=== PATIENT | female | born 1975 | race Caucasian/White ===

== ENCOUNTER 2016-10-26 11:34 | Emergency (ER) | payer SELFPAY ==
[~2016-10-26] VITALS: Ht 152.4 cm; Wt 77.0 kg
[~2016-10-26 11:34] MED LIST: AMOXICILLIN500 MG OR; AMOXICILLIN500 MG PO; AUGMENTIN875 MG OR; BACTRIM DS1 TAB OR; BLEPH-1010 % OD; LORTAB 10 OR; LORTAB 5 OR; LORTAB5 OR; MELOXICAM7.5 MG PO; MULTIVITAMI1 OR; NAPROSYN500 MG PO; NO HOME MEDS; PENICILLN VK500 M1 PO; PENICILLN VK500 MG OR; PERCOCET 5/325M1 TAB OR; PERCOCET 5/325M1 TAB PO; ROBAXIN-750750 MG OR; TORADOL OR; ULTRAM50 M1 PO; ULTRAM50 MG OR; ULTRAM50 MG PO
[2016-10-26] MEDS ORDERED: AUGMENTIN875TAB PO (11:47)
[2016-10-26] MEDS ORDERED: TRAMADOL HYDROC50 MG PO (11:47)
[2016-10-26 11:54] VITALS: BP 138/90
== END 2016-10-26 11:57 | disposition home or self-care (01) | DRG 159 ==
LOC: ED 11:34
DX: K08.89 Other specified disorders of teeth and supporting structures (principal)

== ENCOUNTER 2017-04-11 13:25 | Emergency (ER) | payer SELFPAY ==
[~2017-04-11] VITALS: Ht 152.4 cm; Wt 75.0 kg
[~2017-04-11 13:25] MED LIST changes: +AUGMENTIN875TAB PO; +TRAMADOL HYDROC50 MG PO
[2017-04-11] MEDS ORDERED: LORTAB 1010 MG PO (14:06)
[2017-04-11] MEDS ORDERED: AMOXICILLIN500 MG PO (14:06)
[2017-04-11 14:10] VITALS: BP 131/86
[2017-04-11] MEDS ORDERED: ULTRAM50 M1 PO (14:16)
== END 2017-04-11 14:10 | disposition home or self-care (01) | DRG 159 ==
LOC: ED 13:25
DX: K04.7 Periapical abscess without sinus (principal); S02.5XXA Fracture of tooth (traumatic), initial encounter for closed fracture

== ENCOUNTER 2017-08-15 18:27 | Emergency (ER) | payer SELFPAY ==
[~2017-08-15] VITALS: Ht 152.4 cm; Wt 77.3 kg
[~2017-08-15 18:27] MED LIST changes: +LORTAB 1010 MG PO
[2017-08-15] MEDS ORDERED: NAPROSYN500 MG PO ×2 (18:57→19:31)
[2017-08-15] MEDS ORDERED: AMOXICILLIN500 M2 PO ×2 (18:57→19:31)
[2017-08-15 19:30] VITALS: BP 139/91
== END 2017-08-15 19:30 | disposition home or self-care (01) | DRG 159 ==
LOC: ED 18:27
DX: K03.81 Cracked tooth (principal)

== ENCOUNTER 2021-10-16 20:27 | Emergency (ER) | payer OTHER ==
[~2021-10-16] VITALS: Ht 152.4 cm; Wt 82.0 kg
[~2021-10-16 20:27] MED LIST changes: +AMOXICILLIN500 M2 PO
[2021-10-16] MEDS ORDERED: NAPROXEN500 MG PO (22:35)
[2021-10-16 23:41] VITALS: BP 139/82
== END 2021-10-16 23:43 | disposition home or self-care (01) | DRG 563 ==
LOC: ED 20:27
DX: S93.402A Sprain of unspecified ligament of left ankle, initial encounter (principal); X58.XXXA Exposure to other specified factors, initial encounter